=== PATIENT | male | born 1960 | race African-American/Black ===

== ENCOUNTER 2018-11-11 22:27 | Emergency (ER) | payer MEDICAID ==
[~2018-11-11] VITALS: Ht 167.6 cm; Wt 67.4 kg
[2018-11-11 22:31] VITALS: BP 111/73
== END 2018-11-11 22:39 | disposition left against medical advice (07) ==
LOC: ED 22:33
DX: Z53.21 Procedure and treatment not carried out due to patient leaving prior to being seen by health care provider (principal)